=== PATIENT | female | born 1990 | race Two or more races ===

== ENCOUNTER 2021-02-03 10:28 | Day surgery (SDC) | payer OTHER ==
[2021-02-03] MEDS ORDERED: Tylenol #3 PO (13:40)
== END 2021-02-03 16:55 | disposition home or self-care (01) ==
LOC: CIR.AMB 10:28
PROVIDERS: ATTEND Obstetrics & Gynecology
DX: N80.1 Endometriosis of ovary (principal); Z20.822 Contact with and (suspected) exposure to COVID-19